=== PATIENT | female | born 1950 | race Hispanic/Latino ===

== ENCOUNTER → 2017-11-13 | Outpatient (CLI) | payer MEDICARE ==
[~2017-11-13] MED LIST: ATORVASTATIN CA10 MG PO; GABAPENTIN300 MG PO; JANUVIA100 MG PO; NORVASC5 MG PO; OXYBUTYNIN CHLOR5 MG PO; SERTRALINE HCL100 MG PO; SODIUM BICARBO650 MG PO; TYLENOL WITH C1 EACH PO
== END ==
LOC: MAMMO 09:44
PROVIDERS: ATTEND Internal Medicine
DX: Z12.31 Encounter for screening mammogram for malignant neoplasm of breast (principal)
CPT/HCPCS: 77067

== ENCOUNTER → 2018-08-12 | Outpatient (CLI) | payer MEDICARE ==
--- NOTE | 2018-08-12 09:10 | Diagnostic Imaging Report ---
EXAM: CT Chest WITHOUT contrast INDICATION: Pulmonary fibrosis. COMPARISON: None. TECHNIQUE: Chest was scanned utilizing a multidetector helical scanner from the lung apex through the level of the adrenal glands without administration of IV contrast. High-resolution prone, inspiration, and expiration views were obtained. Absence of intravenous contrast decreases sensitivity for detection of lymphadenopathy and vascular pathology. Coronal and sagittal reformations were obtained. High-resolution chest CT protocol was performed. RADIATION DOSE: Total DLP: 1440.5 mGy*cm Dose modulation, iterative reconstruction, and/or weight based adjustment of the mA/kV was utilized to reduce the radiation dose to as low as reasonably achievable. COMPLICATIONS: None FINDINGS: LINES/ TUBES: None. LUNGS AND AIRWAYS: The central airways are patent with central diffuse tracheobronchial calcifications. There is diffuse mild bronchial wall thickening. There are bilateral fibrotic changes of the lungs with peripheral and basilar predominant interstitial opacities, traction bronchiectasis, and architectural distortion. There are multifocal groundglass opacities, for example in the left upper lobe on images 36 and 49 and right lower lobe on image 56. There is no honeycombing. No significant air trapping on expiratory images. Diffuse opacity limits evaluation for pulmonary nodule. PLEURA: No pleural effusion or pneumothorax. HEART AND MEDIASTINUM: The thyroid gland is unremarkable. No evidence of mediastinal or hilar lymphadenopathy. Mild cardiomegaly. No pericardial effusion. Scattered atherosclerotic changes of the coronary arteries and thoracic aorta. UPPER ABDOMEN: Limited non-contrast views of the upper abdomen. There is a 1.4 cm left adrenal adenoma see series 3, image 98; 3 HU). Small hiatal hernia. BONES: Degenerative changes of the visualized spine. No suspicious lytic or blastic lesions. SOFT TISSUES: Unremarkable. IMPRESSION: Findings of peripheral and basilar predominant interstitial lung disease. No associated honeycombing. Multifocal ground glass opacities. Findings likely represent an NSIP pattern of pulmonary fibrosis. Follow-up chest CT may be considered in 12 months. Signed by: Dr. Selene Schroeder MD on 08/12/2018 9:07 AM
== END ==
LOC: CT 08:01
PROVIDERS: ATTEND Internal Medicine Pulmonary Disease
DX: J84.10 Pulmonary fibrosis, unspecified (principal)
CPT/HCPCS: 71250